=== PATIENT | female | born 2000 | race Two or more races ===

== ENCOUNTER 2023-09-02 22:17 | Emergency (ER) | payer OTHER ==
[~2023-09-02] VITALS: Ht 157.5 cm; Wt 55.3 kg
[2023-09-02] MEDS ORDERED: VIIBRYD10 MG (22:34)
[2023-09-02] MEDS ORDERED: HORIZANT300 MG (22:34)
[2023-09-02] MEDS ORDERED: BUSPIRONE HCL7.5 MG (22:34)
[2023-09-02] MEDS ORDERED: ZINC7.5 MG (22:34)
[2023-09-02] MEDS ORDERED: CORLANOR5 MG (22:34)
[2023-09-02] MEDS ORDERED: CONTRAVE ER 8-1 EACH (22:35)
[2023-09-02] MEDS ORDERED: CLARITIN5 MG (22:35)
[2023-09-02] MEDS ORDERED: MESTINON60 M1 (22:36)
[2023-09-02] MEDS ORDERED: MEDROLPACK PO (22:57)
[2023-09-02] MEDS ORDERED: DIPHENHYDRAMINE HCL 50 MG/ML VIAL 1ML IV ONE (23:00)
[2023-09-02] MEDS ORDERED: METHYLPREDNISOLONE SOD SUCC 125 MG VIAL IV ONE (23:00)
== END 2023-09-03 00:05 | disposition home or self-care (01) ==
LOC: ER 22:17
DX: A05.9 Bacterial foodborne intoxication, unspecified (principal); Z91.018 Allergy to other foods; T78.40XA Allergy, unspecified, initial encounter
CPT/HCPCS: 96365; 99282; J1200; J2930